=== PATIENT | female | born 1990 | race Asian ===

== ENCOUNTER 2023-12-13 15:03 | Emergency (ER) | payer OTHER ==
[2023-12-13 15:14] VITALS: BP 128/83; RESP 18; TEMP 98.1; BMI 21.7
[2023-12-13] MEDS ORDERED: DIPHTH,PERTUSS(ACELL),TET 0.5 ML DISP.SYRIN IM ONE ×2 (18:44→18:47)
[2023-12-13 19:05] VITALS: PULSE 86
== END 2023-12-13 19:05 | disposition home or self-care (01) ==
LOC: JERFT 15:03
PROC: 3E0234Z Introduction of Serum, Toxoid and Vaccine into Muscle, Percutaneous Approach (ICD-10-PCS; principal; 2023-12-13)
DX: S61.412A Laceration without foreign body of left hand, initial encounter (principal); X58.XXXA Exposure to other specified factors, initial encounter
CPT/HCPCS: 73140-TC-LT-FY; 90715; 99283-25